=== PATIENT | male | born 1965 | race Caucasian/White ===

== ENCOUNTER 2023-07-26 08:50 | Outpatient (CLI) | payer OTHER ==
[2023-07-26 09:44] LABS: Hematocrit 41.2 % (38.8-50.0); Hemoglobin 14.6 g/dL (13.5-17.5); Mean Corpuscular HGB CONC 35.4 g/dL (32.0-36.0); Mean Corpuscular Volume 87.5 fL (81.2-95.1); Mean Platelet Volume 11.2 fL (7.4-10.4); Platelet Count 221 10x3/uL (150-450); RBC Distribution Width 12.4 % (11.5-14.5); Red Blood Cell (RBC) Count 4.71 10x6/uL (4.32-5.72); White Blood Cell (WBC) Count 6.6 10x3/uL (3.5-10.5)
[2023-07-26 10:18] LABS: Anion Gap 14 mmol/L (10-20); BUN (Urea Nitrogen) 17 mg/dL (8.4-25.7); Calc. Creatinine Clearance 0 mL/min (70-130); Calcium 9.8 mg/dL (7.8-10.44); Carbon Dioxide 21 mmol/L (22-29); Chloride 108 mmol/L (98-107); Estimated GFR 78; Glucose 167 mg/dL (70-105); Potassium 4.2 mmol/L (3.5-5.1); Sodium 139 mmol/L (136-145)
[2023-07-26 10:20] LABS: Bilirubin Neg (Negative); Blood, Urine 250 (Negative); Clarity Cloudy (Clear); Glucose, Urine (Dipstick) Normal (Negative); Ketone, Urine 5 mg/dL (Negative); Leukocyte 500 (Negative); Nitrite Positive (Negative); Protein, Urine (Dipstick) 100 mg/dl (Neg-Trace); Urobilinogen Normal mg/dL (Less than 2)
[2023-07-26 10:24] LABS: Bacteria/HPF 3+ HPF (None Seen); RBC/HPF Greater than 50 HPF (0-3)
[2023-07-26 11:35] LABS: PTT 26.1 sec (22.0-33.0); Prothrombin Time 10.8 sec (9.5-12.1)
== END 2023-07-26 08:51 | disposition home or self-care (01) ==
LOC: LABBT 08:50
PROVIDERS: ATTEND Urology
DX: Z01.818 Encounter for other preprocedural examination (principal); N20.2 Calculus of kidney with calculus of ureter
CPT/HCPCS: 80048; 81001; 85027; 85610; 85730; 87086; 93005; 93010

== ENCOUNTER 2023-08-05 09:04 | Day surgery (SDC) | payer OTHER ==
[2023-07-26 09:24] VITALS: BMI 27.8
[2023-08-05] MEDS ORDERED: Lidocaine 2% PF 5 ML VIAL ONE (12:09)
[2023-08-05] MEDS ORDERED: PROPOFOL 20 ML ONE ×2 (12:09→14:15)
[2023-08-05] MEDS ORDERED: Rocuronium Bromide 10 MG/ML (10ML VIAL) ONE (12:09)
[2023-08-05] MEDS ORDERED: LevoFLOXacin D5W 500 mg (100 mL) BAG ONE (12:09)
[2023-08-05] MEDS ORDERED: fentaNYL PF 100 MCG/2 ML SYRINGE ONE (12:10)
[2023-08-05] MEDS ORDERED: SUGAMMADEX SODIUM 200 MG/2 ML VIAL ONE (13:22)
[2023-08-05] MEDS ORDERED: fentaNYL 50 mcg/mL 1 mL Vial ONE ×3 (14:24→16:25)
[2023-08-05] MEDS ORDERED: Oxybutynin 5 MG TAB ONE (14:40)
[2023-08-05] MEDS ORDERED: Phenazopyridine HCl 100 MG TAB ONE (14:40)
[2023-08-05] MEDS ORDERED: HYDROmorphone 0.5 MG/0.5 ML SYRINGE ONE (15:16)
[2023-08-05] MEDS ORDERED: Ondansetron PF 4 MG/2 ML Vial ONE (15:59)
[2023-08-05] MEDS ORDERED: Promethazine HCl 25 MG/ML VIAL ONE (16:19)
[2023-08-05] MEDS ORDERED: Ondansetron ODT 4 MG TAB ONE (17:59)
== END 2023-08-05 18:40 | disposition home or self-care (01) ==
LOC: SDC 09:04
PROVIDERS: ATTEND Urology
PROC: 0TC68ZZ Extirpation of Matter from Right Ureter, Via Natural or Artificial Opening Endoscopic (ICD-10-PCS; principal; 2023-08-05)
PROC: 0TC18ZZ Extirpation of Matter from Left Kidney, Via Natural or Artificial Opening Endoscopic (ICD-10-PCS; principal; 2023-08-05)
PROC: 0T788DZ Dilation of Bilateral Ureters with Intraluminal Device, Via Natural or Artificial Opening Endoscopic (ICD-10-PCS; principal; 2023-08-05)
DX: N20.2 Calculus of kidney with calculus of ureter (principal)
CPT/HCPCS: 82365; 88300; C1713; C1747; C1769; C2617; J1170; J1956; J2001; J2405; J2550; J2704; J3010; Q0162